=== PATIENT | male | born 1980 | race African-American/Black ===

== ENCOUNTER 2019-06-25 16:17 | Emergency (ER) | payer OTHER ==
[~2019-06-25] VITALS: Ht 175.3 cm; Wt 79.8 kg
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
== END 2019-06-25 17:23 | disposition home or self-care (01) ==
LOC: FSED 16:17
DX: M54.2 Cervicalgia (principal); S16.1XXA Strain of muscle, fascia and tendon at neck level, initial encounter; S33.5XXA Sprain of ligaments of lumbar spine, initial encounter; V43.52XA Car driver injured in collision with other type car in traffic accident, initial encounter; Y92.488 Other paved roadways as the place of occurrence of the external cause
CPT/HCPCS: 72040; 72100; 99283